=== PATIENT | female | born 1985 | race Caucasian/White ===

== ENCOUNTER 2017-06-04 17:18 | Emergency (ER) | payer BC ==
[~2017-06-04] VITALS: Ht 162.6 cm; Wt 106.9 kg
[2017-06-04] MEDS ORDERED: MAALOX/HYOSCYAMINE/LIDOCAINE 45 ML BTL PO ONE (18:00)
[2017-06-04] MEDS ORDERED: FAMOTIDINE 20 MG TABLET PO ONE (18:00)
[2017-06-04] MEDS ORDERED: MAALOX/HYOSCYAMINE/LIDOCAINE 45 ML BTL ONE (18:05)
[2017-06-04] MEDS ORDERED: FAMOTIDINE 20 MG TABLET ONE (18:05)
[2017-06-04 18:46] LABS: ALBUMIN 2.3 g/dL (3.4-5.0); ANION GAP 10 mmol/L (5-15); CALCIUM 8.3 mg/dL (8.5-10.1); CHLORIDE 106 mmol/L (98-107)
[2017-06-04 18:53] LABS: ALANINE AMINOTRANSFERASE 208 U/L (12-78); ALKALINE PHOSPHATASE 115 U/L (45-117); BILIRUBIN,TOTAL 1.5 mg/dL (0.2-1.0); CREATININE 0.63 mg/dL (0.55-1.02); TOTAL PROTEIN 6.1 g/dL (6.4-8.2); TROPONIN I < 0.015 ng/mL (0.000-0.045)
[2017-06-04] MEDS ORDERED: MORPHINE SULFATE 4 MG/ML, 1ML IVPush STA (19:19)
[2017-06-04] MEDS ORDERED: MORPHINE SULFATE 4 MG/ML, 1ML ONE (19:21)
[2017-06-04 19:23] LABS: MEAN CORPUSCULAR HEMOGLOBIN 30.9 pg (27.0-34.8); MEAN CORPUSCULAR HGB CONC 34.3 g/dL (32.4-35.8); MEAN CORPUSCULAR VOLUME 89.9 fL (80-100); MEAN PLATELET VOLUME 8.6 fL (7.4-10.4); RED BLOOD COUNT 3.58 x10^6/uL (3.82-5.3); RED CELL DISTRIBUTION WIDTH 12.7 % (9.6-15.2)
[2017-06-04 19:25] LABS: PLATELET COUNT 35 x10^3/uL (130-400)
[2017-06-04 19:26] LABS: MD YES
[2017-06-04 19:30] LABS: BAND#(MANUAL) 0.07 x10^3/uL; BANDS%(MANUAL) 1 % (0-7); EOS#(MANUAL) 0.07 x10^3/uL (0.0-0.4); EOS% (MANUAL) 1 % (1-7); LYMPH#(MANUAL) 1.35 x10^3/uL (1-3.4); LYMPHS% (MANUAL) 19 % (22-44); MONOS#(MANUAL) 0.21 x10^3/uL (0.3-2.7); MONOS% (MANUAL) 3 % (2-9); NRBC % (MANUAL) 1 % (0-1); REACTIVE LYMPHS # (MANUAL) 0.36 x10^3/uL (0-0); REACTIVE LYMPHS % (MANUAL) 5 % (0-0); SEG#(MANUAL) 5.04 x10^3/uL (1.8-6.8); SEGS% (MANUAL) 71 % (42-75)
[2017-06-04] MEDS ORDERED: SODIUM CHLORIDE FLUSH 10ML SYR IVF ONE (19:30)
[2017-06-04 19:32] LABS: ANISOCYTOSIS 1+; POLYCHROMASIA 1+
[2017-06-04 19:33] LABS: <PLATELET ESTIMATE> DECREASED; <PLT MORPHOLOGY> NORMAL PLT MORPH
[2017-06-04] MEDS ORDERED: LABETALOL 5MG/ML, 20ML IVPush STA (19:41)
[2017-06-04] MEDS ORDERED: LABETALOL 5MG/ML, 20ML ONE (19:51)
[2017-06-04] MEDS ORDERED: MAGNESIUM SULF. PMX 20GM/500ML 500 ML IV ONE (19:56)
[2017-06-04] MEDS ORDERED: OXYTOCIN 30U/ 0.9% NaCL 500ML 500 ML ONE (20:01)
[2017-06-04] MEDS ORDERED: NEWBORN KIT ONE (20:01)
[2017-06-04 20:02] VITALS: BP 149/91
[2017-06-04 20:49] LABS: MICROSCOPIC INDICATED
[2017-06-04 20:50] LABS: CULTURE INDICATED? YES
[2017-06-04] MEDS ORDERED: FENTANYL PF 250 MCG/5ML ONE (21:35)
[2017-06-04] MEDS ORDERED: SUCCINYLCHOLINE 20 MG/ML, 10ML ONE (21:41)
[2017-06-04] MEDS ORDERED: CEFAZOLIN 1,000 MG ONE (21:41)
[2017-06-04] MEDS ORDERED: DEXAMETHASONE 4 MG/ML, 1ML ONE (21:41)
[2017-06-04] MEDS ORDERED: ONDANSETRON 2MG/ML, 2ML ONE (21:41)
[2017-06-04] MEDS ORDERED: PROPOFOL 10 MG/ML, 20ML ONE (21:41)
[2017-06-04] MEDS ORDERED: OXYTOCIN 10 UNITS/ML, 1ML ONE (21:41)
[2017-06-04] MEDS ORDERED: ROCURONIUM 10MG/ML,5ML ONE (21:41)
[2017-06-04] MEDS ORDERED: FENTANYL PF 100 MCG/2ML ONE ×2 (23:04→23:16)
[2017-06-05] MEDS ORDERED: LABETALOL 200 MG TABLET ONE (21:15)
== END 2017-06-05 00:14 | disposition other institution (70) ==
LOC: ED 17:38
DX: O14.13 Severe pre-eclampsia, third trimester (principal); O16.3 Unspecified maternal hypertension, third trimester; R07.89 Other chest pain; Z3A.36 36 weeks gestation of pregnancy; K21.9 Gastro-esophageal reflux disease without esophagitis; R82.99 Other abnormal findings in urine
CPT/HCPCS: 36415; 71045; 80053; 81001; 83690; 84484; 85025; 87086; 93005; 96374; 99291; J0330; J0690; J1100; J2405; J2590; J2704; J3010

== ENCOUNTER 2017-06-04 21:01 | Inpatient (IN) | payer BC ==
[~2017-06-04] VITALS: Ht 162.6 cm; Wt 106.0 kg
[2017-06-04] MEDS: LACTATED RINGERS 1,000 ML IV SCH ×2 (20:50→21:03)
[~2017-06-04 21:01] MED LIST: CARBOPROST TROMETHAMINE 250 MCG/ML, 1ML IM ONE; CEFAZOLIN 1,000 MG ONE; DEXAMETHASONE 4 MG/ML, 1ML ONE; ESMOLOL 100 MG/10 ML ONE; ONDANSETRON 2MG/ML, 2ML ONE; SUCCINYLCHOLINE 20 MG/ML, 10ML ONE
[2017-06-04] MEDS ORDERED: AMPICILLIN 2 GM in SODIUM CHLORIDE 0.9% 100 ML IVPB ONE (21:03)
[2017-06-04] MEDS ORDERED: OXYTOCIN 30U/ 0.9% NaCL 500ML 500 ML IV ONE (21:03)
[2017-06-04] MEDS: MAGNESIUM SULF. PMX 20GM/500ML 500 ML IV SCH (21:05)
[2017-06-04] MEDS ORDERED: PLEASE ENTER HEIGHT AND WEIGHT MC SCH ×2 (21:30→23:45)
[2017-06-04] MEDS ORDERED: FENTANYL PF 100 MCG/2ML IV PRN (21:30)
[2017-06-04] MEDS ORDERED: MAGNESIUM SULFATE PMX 4GM/100M 100 ML IVPB ONE (21:30)
[2017-06-04] MEDS ORDERED: ONDANSETRON 2MG/ML, 2ML IVPush PRN (21:30)
[2017-06-04] MEDS ORDERED: FENTANYL PF 100 MCG/2ML IVPush PRN (21:30)
[2017-06-04] MEDS ORDERED: LIDOCAINE 1%, 20ML ONE (21:54)
[2017-06-04] MEDS ORDERED: SODIUM CITRATE/CITRIC ACID 30 ML UDC ONE (21:57)
[2017-06-04] MEDS ORDERED: MISOPROSTOL 200 MCG TABLET ONE (21:58)
[2017-06-04] MEDS ORDERED: METOCLOPRAMIDE 5 MG/ML, 2ML ONE (21:58)
[2017-06-04] MEDS ORDERED: OXYTOCIN 30U/ 0.9% NaCL 500ML 0 ML ONE (21:58)
[2017-06-04] MEDS ORDERED: LABETALOL 5MG/ML, 20ML ONE (22:04)
[2017-06-04 22:05] LABS: MEAN CORPUSCULAR HEMOGLOBIN 31.8 pg (27.0-34.8); MEAN CORPUSCULAR HGB CONC 34.3 g/dL (32.4-35.8); MEAN CORPUSCULAR VOLUME 92.7 fL (80-100); RED BLOOD COUNT 3.35 x10^6/uL (3.82-5.3); RED CELL DISTRIBUTION WIDTH 12.5 % (9.6-15.2)
[2017-06-04 22:09] LABS: INTERNATIONAL NORMALIZED RATIO 0.88 (0.93-1.1); PROTHROMBIN TIME 9.2 Seconds (9.6-11.5)
[2017-06-04 22:21] LABS: MD SCAN; MEAN PLATELET VOLUME 9.3 fL (7.4-10.4)
[2017-06-04 22:22] LABS: BASOPHILS # (AUTO) 0.07 x10^3/uL (0-0.1); BASOPHILS % (AUTO) 1 % (0-1); EOSINOPHILS # (AUTO) 0.07 x10^3/uL (0-0.4); EOSINOPHILS % (AUTO) 1 % (1-7); LYMPHOCYTES # (AUTO) 1.34 x10^3/uL (1-3.4); LYMPHOCYTES % (AUTO) 19 % (22-44); MONOCYTES # (AUTO) 0.49 x10^3/uL (0.2-0.8); MONOCYTES % (AUTO) 7 % (2-9); NEUTROPHILS # (AUTO) 5.06 x10^3/uL (1.8-6.8); NEUTROPHILS % (AUTO) 72 % (42-75)
[2017-06-04 22:26] LABS: PLATELET COUNT 28 x10^3/uL (130-400)
[2017-06-04] MEDS ORDERED: ACETAMINOPHEN 325 MG TABLET PO PRN (23:30)
[2017-06-04] MEDS ORDERED: OXYcodone IR 5MG TABLET PO PRN (23:30)
[2017-06-04] MEDS ORDERED: ONDANSETRON 2MG/ML, 2ML IV PRN (23:30)
[2017-06-04] MEDS ORDERED: HYDROmorphone PCA 30 MG/30 ML IV PRN (23:30)
[2017-06-04] MEDS ORDERED: morphine SULFATE 10 MG/ML, 1ML IVPush PRN (23:30)
[2017-06-05] MEDS ORDERED: PROMETHAZINE 25 MG/ML, 1ML IV PRN
[2017-06-05] MEDS ORDERED: HYDROmorphone PCA 30 MG/30 ML IV PRN
[2017-06-05] MEDS ORDERED: hydrALAzine 20 MG/ML, 1ML IV PRN
[2017-06-05] MEDS ORDERED: OXYcodone 5 MG/5 ML ORAL.SOL UDC PO PRN
[2017-06-05] MEDS ORDERED: ONDANSETRON 2MG/ML, 2ML IVPush PRN
[2017-06-05] MEDS ORDERED: morphine SULFATE 10 MG/ML, 1ML IV PRN
[2017-06-05] MEDS ORDERED: FENTANYL PF 100 MCG/2ML IV PRN
[2017-06-05] MEDS ORDERED: MEPERIDINE/PF 25MG/0.5ML IVPush PRN
[2017-06-05] MEDS ORDERED: LABETALOL 5MG/ML, 20ML IV PRN
[2017-06-05 00:08] LABS: MEAN CORPUSCULAR HEMOGLOBIN 31.5 pg (27.0-34.8); MEAN CORPUSCULAR HGB CONC 34.8 g/dL (32.4-35.8); MEAN CORPUSCULAR VOLUME 90.3 fL (80-100); RED BLOOD COUNT 3.35 x10^6/uL (3.82-5.3); RED CELL DISTRIBUTION WIDTH 12.4 % (9.6-15.2)
[2017-06-05 00:19] LABS: PLATELET COUNT 48 x10^3/uL (130-400)
[2017-06-05] MEDS ORDERED: HYDROmorphone PCA 30 MG/30 ML ONE (00:19)
[2017-06-05 00:42] LABS: BASOPHILS # (AUTO) 0.03 x10^3/uL (0-0.1); BASOPHILS % (AUTO) 0 % (0-1); EOSINOPHILS # (AUTO) 0.09 x10^3/uL (0-0.4); EOSINOPHILS % (AUTO) 1 % (1-7); LYMPHOCYTES # (AUTO) 1.04 x10^3/uL (1-3.4); LYMPHOCYTES % (AUTO) 13 % (22-44); MD SCAN; MONOCYTES % (AUTO) 4 % (2-9); NEUTROPHILS # (AUTO) 6.48 x10^3/uL (1.8-6.8); NEUTROPHILS % (AUTO) 82 % (42-75)
[2017-06-05] MEDS: AMPICILLIN 1 GM in SODIUM CHLORIDE 0.9% 50 ML IVPB SCH ×3 (01:30→09:30)
[2017-06-05] MEDS ORDERED: LABETALOL 5MG/ML, 20ML IVPush STA (03:36)
[2017-06-05] MEDS: LACTATED RINGERS 1,000 ML IV SCH ×7 (05:03→23:28)
[2017-06-05] MEDS ORDERED: MAGNESIUM SULF. PMX 20GM/500ML 500 ML IV ONE ×2 (05:16→14:48)
[2017-06-05] MEDS: MAGNESIUM SULF. PMX 20GM/500ML 500 ML IV SCH ×2 (05:21→14:55)
[2017-06-05] MEDS ORDERED: LABETALOL 5MG/ML, 20ML ONE (06:28)
[2017-06-05] MEDS: LABETALOL 5MG/ML, 20ML IVPush PRN ×2 (06:34→06:57)
[2017-06-05 06:37] LABS: MEAN CORPUSCULAR HEMOGLOBIN 32.3 pg (27.0-34.8); MEAN CORPUSCULAR VOLUME 89.6 fL (80-100); MEAN PLATELET VOLUME 8.5 fL (7.4-10.4); PLATELET COUNT 53 x10^3/uL (130-400); RED BLOOD COUNT 3.09 x10^6/uL (3.82-5.3); RED CELL DISTRIBUTION WIDTH 12.6 % (9.6-15.2)
[2017-06-05 06:40] VITALS: BP 169/80
[2017-06-05 06:41] LABS: ANION GAP 11 mmol/L (5-15); CALCIUM 7.2 mg/dL (8.5-10.1); CHLORIDE 103 mmol/L (98-107)
[2017-06-05 06:45] LABS: ALANINE AMINOTRANSFERASE 173 U/L (12-78); ALKALINE PHOSPHATASE 101 U/L (45-117); BILIRUBIN,TOTAL 1.2 mg/dL (0.2-1.0); CREATININE 0.53 mg/dL (0.55-1.02); TOTAL PROTEIN 5.2 g/dL (6.4-8.2)
[2017-06-05] MEDS ORDERED: LABETALOL 100 MG TABLET ONE (07:11)
[2017-06-05] MEDS: LABETALOL 200 MG TABLET PO SCH ×2 (07:14→21:16)
[2017-06-05 07:48] LABS: BASOPHILS # (AUTO) 0.01 x10^3/uL (0-0.1); BASOPHILS % (AUTO) 0 % (0-1); EOSINOPHILS # (AUTO) 0.01 x10^3/uL (0-0.4); EOSINOPHILS % (AUTO) 0 % (1-7); LYMPHOCYTES # (AUTO) 0.77 x10^3/uL (1-3.4); LYMPHOCYTES % (AUTO) 11 % (22-44); MD SCAN; MONOCYTES # (AUTO) 0.19 x10^3/uL (0.2-0.8); MONOCYTES % (AUTO) 3 % (2-9); NEUTROPHILS # (AUTO) 5.88 x10^3/uL (1.8-6.8); NEUTROPHILS % (AUTO) 86 % (42-75)
[2017-06-05] MEDS: OXYTOCIN 30U/ 0.9% NaCL 500ML 500 ML IV SCH ×3 (09:28→19:28)
[2017-06-05] MEDS ORDERED: OXYTOCIN 30U/ 0.9% NaCL 500ML 500 ML ONE (10:22)
[2017-06-05 16:11] LABS: ALBUMIN 1.9 g/dL (3.4-5.0); ANION GAP 8 mmol/L (5-15); CALCIUM 6.6 mg/dL (8.5-10.1); CHLORIDE 104 mmol/L (98-107)
[2017-06-05 16:14] LABS: ALANINE AMINOTRANSFERASE 156 U/L (12-78); ALKALINE PHOSPHATASE 92 U/L (45-117); BILIRUBIN,TOTAL 0.6 mg/dL (0.2-1.0); CREATININE 0.52 mg/dL (0.55-1.02); TOTAL PROTEIN 5.1 g/dL (6.4-8.2)
[2017-06-05 16:17] LABS: MEAN CORPUSCULAR HEMOGLOBIN 32.7 pg (27.0-34.8); MEAN CORPUSCULAR HGB CONC 35.3 g/dL (32.4-35.8); MEAN CORPUSCULAR VOLUME 92.7 fL (80-100); PLATELET COUNT 69 x10^3/uL (130-400); RED BLOOD COUNT 2.76 x10^6/uL (3.82-5.3); RED CELL DISTRIBUTION WIDTH 12.8 % (9.6-15.2)
[2017-06-05 16:34] LABS: BASOPHILS # (AUTO) 0.02 x10^3/uL (0-0.1); BASOPHILS % (AUTO) 0 % (0-1); EOSINOPHILS # (AUTO) 0.01 x10^3/uL (0-0.4); EOSINOPHILS % (AUTO) 0 % (1-7); LYMPHOCYTES # (AUTO) 1.17 x10^3/uL (1-3.4); LYMPHOCYTES % (AUTO) 18 % (22-44); MD SCAN; MONOCYTES % (AUTO) 6 % (2-9); NEUTROPHILS % (AUTO) 75 % (42-75)
[2017-06-06] MEDS ORDERED: MAGNESIUM SULF. PMX 20GM/500ML 500 ML IV ONE (00:45)
[2017-06-06] MEDS: MAGNESIUM SULF. PMX 20GM/500ML 500 ML IV SCH (00:50)
[2017-06-06] MEDS: OXYTOCIN 30U/ 0.9% NaCL 500ML 500 ML IV SCH (05:28)
[2017-06-06] MEDS: LACTATED RINGERS 1,000 ML IV SCH ×2 (05:28→07:28)
[2017-06-06 05:34] LABS: MEAN CORPUSCULAR HEMOGLOBIN 31.7 pg (27.0-34.8); MEAN CORPUSCULAR HGB CONC 34.5 g/dL (32.4-35.8); MEAN CORPUSCULAR VOLUME 92.1 fL (80-100); RED BLOOD COUNT 2.66 x10^6/uL (3.82-5.3)
[2017-06-06 05:44] LABS: ALBUMIN 1.8 g/dL (3.4-5.0); ANION GAP 7 mmol/L (5-15); CHLORIDE 104 mmol/L (98-107)
[2017-06-06 05:47] LABS: ALANINE AMINOTRANSFERASE 142 U/L (12-78); ALKALINE PHOSPHATASE 89 U/L (45-117); BILIRUBIN,TOTAL 0.6 mg/dL (0.2-1.0); CREATININE 0.49 mg/dL (0.55-1.02); TOTAL PROTEIN 4.8 g/dL (6.4-8.2)
[2017-06-06 06:17] LABS: BASOPHILS # (AUTO) 0.03 x10^3/uL (0-0.1); BASOPHILS % (AUTO) 1 % (0-1); EOSINOPHILS # (AUTO) 0.07 x10^3/uL (0-0.4); EOSINOPHILS % (AUTO) 1 % (1-7); LYMPHOCYTES % (AUTO) 29 % (22-44); MD SCAN; MEAN PLATELET VOLUME 8.2 fL (7.4-10.4); MONOCYTES # (AUTO) 0.25 x10^3/uL (0.2-0.8); MONOCYTES % (AUTO) 5 % (2-9); NEUTROPHILS # (AUTO) 3.41 x10^3/uL (1.8-6.8); NEUTROPHILS % (AUTO) 65 % (42-75); PLATELET COUNT 91 x10^3/uL (130-400)
[2017-06-06 08:25] VITALS: BP 122/78
[2017-06-06] MEDS: OXYcodone/APAP 5/325MG TABLET PO PRN ×2 (08:48→13:44)
[2017-06-06] MEDS: PRENATAL VIT/IRON/FA 1 EACH TABLET PO SCH ×2 (08:48→09:00)
[2017-06-06] MEDS: LABETALOL 100 MG TABLET PO SCH ×2 (08:48→20:53)
[2017-06-06] MEDS: DOCUSATE 100 MG CAPSULE PO PRN (08:48)
[2017-06-06] MEDS ORDERED: RHOGAM FROM BLOOD BANK 1 NOTE EA IM/IV ONE (12:00)
[2017-06-06 12:44] VITALS: BP 128/87
[2017-06-06 17:26] VITALS: BP 120/74
[2017-06-06 19:15] VITALS: BP 143/86
[2017-06-07] MEDS: OXYcodone/APAP 5/325MG TABLET PO PRN ×2 (00:08→21:24)
[2017-06-07 00:13] VITALS: BP 127/85
[2017-06-07 04:20] VITALS: BP 141/90
[2017-06-07 06:00] LABS: ALBUMIN 2.2 g/dL (3.4-5.0); ANION GAP 6 mmol/L (5-15); CALCIUM 7.6 mg/dL (8.5-10.1); CHLORIDE 113 mmol/L (98-107)
[2017-06-07 06:04] LABS: ALANINE AMINOTRANSFERASE 132 U/L (12-78); ALKALINE PHOSPHATASE 117 U/L (45-117); BILIRUBIN,TOTAL 0.4 mg/dL (0.2-1.0); TOTAL PROTEIN 5.8 g/dL (6.4-8.2)
[2017-06-07 06:33] LABS: BASOPHILS # (AUTO) 0.04 x10^3/uL (0-0.1); BASOPHILS % (AUTO) 1 % (0-1); EOSINOPHILS # (AUTO) 0.09 x10^3/uL (0-0.4); EOSINOPHILS % (AUTO) 2 % (1-7); LYMPHOCYTES % (AUTO) 23 % (22-44); MD NO; MEAN CORPUSCULAR HEMOGLOBIN 31.7 pg (27.0-34.8); MEAN CORPUSCULAR HGB CONC 34.7 g/dL (32.4-35.8); MEAN CORPUSCULAR VOLUME 91.3 fL (80-100); MEAN PLATELET VOLUME 8.1 fL (7.4-10.4); MONOCYTES # (AUTO) 0.28 x10^3/uL (0.2-0.8); MONOCYTES % (AUTO) 4 % (2-9); NEUTROPHILS # (AUTO) 4.41 x10^3/uL (1.8-6.8); NEUTROPHILS % (AUTO) 71 % (42-75); PLATELET COUNT 135 x10^3/uL (130-400); RED BLOOD COUNT 3.05 x10^6/uL (3.82-5.3)
[2017-06-07 08:29] VITALS: BP 143/85
[2017-06-07] MEDS: PRENATAL VIT/IRON/FA 1 EACH TABLET PO SCH (09:15)
[2017-06-07] MEDS: DOCUSATE 100 MG CAPSULE PO PRN ×2 (09:15→21:24)
[2017-06-07] MEDS: LABETALOL 100 MG TABLET PO SCH ×2 (09:15→21:24)
[2017-06-07 16:53] VITALS: BP 179/92
[2017-06-07] MEDS ORDERED: niFEDipine ER 30 MG TABLET.ER ONE (18:15)
[2017-06-07] MEDS: niFEDipine ER 30 MG TABLET.ER PO SCH (18:17)
[2017-06-07 20:10] VITALS: BP 134/88
[2017-06-08] VITALS: BP 138/84
[2017-06-08 04:30] VITALS: BP 138/86
[2017-06-08 07:35] VITALS: BP 145/88
[2017-06-08] MEDS: PRENATAL VIT/IRON/FA 1 EACH TABLET PO SCH (08:05)
[2017-06-08] MEDS: LABETALOL 100 MG TABLET PO SCH (08:05)
[2017-06-08] MEDS: niFEDipine ER 30 MG TABLET.ER PO SCH (08:05)
[2017-06-08] MEDS ORDERED: IBUP-1222 PO (14:13)
[2017-06-08] MEDS ORDERED: NIFE30TA2 PO (14:14)
[2017-06-08] MEDS ORDERED: OXYC-302 PO (14:14)
== END 2017-06-08 15:57 | disposition home or self-care (01) | DRG 766 ==
LOC: LDIP 21:01 → 2NE 06-05 03:00 → 2NW 06-06 08:47
PROVIDERS: ADMIT Obstetrics & Gynecology; ATTEND Obstetrics & Gynecology
PROC: 10D00Z1 Extraction of Products of Conception, Low, Open Approach (ICD-10-PCS; principal; 2017-06-05)
DX: O99.284 Endocrine, nutritional and metabolic diseases complicating childbirth (principal); E16.2 Hypoglycemia, unspecified; Z37.0 Single live birth; O14.24 HELLP syndrome, complicating childbirth; Z3A.35 35 weeks gestation of pregnancy
CPT/HCPCS: 36415; 80053; 82140; 82803; 82962; 83615; 83735; 84550; 85025; 85384; 85461; 85610; 85730; 86850; 86900; 86923; J0690; J1100; J2405; J2790; C1765; J0330; J2590; J3475; J7120; P9035